=== PATIENT | male | born 1990 | race Caucasian/White ===

== ENCOUNTER 2021-10-24 19:40 | Inpatient (IN) | payer OTHER ==
[2021-10-24] MEDS ORDERED: PIPERACILLIN/TAZOBACTAM 4.5 GM VIAL IVPB ONE (21:25)
[2021-10-24] MEDS ORDERED: VANCOMYCIN 1 GM in D5W (PRE-DOCKED) 1,000 MG/250 ML IVPB ONE (21:26)
[2021-10-24] MEDS ORDERED: GABAPENTIN 300 MG CAPSULE PO ONE (21:28)
[2021-10-24] MEDS ORDERED: GABAPENTIN 300 MG CAPSULE ONE (21:42)
[2021-10-24] MEDS ORDERED: VANCOMYCIN 1 GRAM (PRE-DOCKED) 1,000 MG/250 ML BAG IVPB ONE (21:42)
[2021-10-24] MEDS ORDERED: PIPERACILLIN/TAZOB 4.5 GM 4.5 GM/100 ML BAG IVPB ONE (21:42)
[2021-10-24 22:18] LABS: BASO % 0.7 % (0-2.0); EOS % 0.4 % (0-4.5); HEMATOCRIT 39.3 % (35.4-49); HEMOGLOBIN 13.2 GM/dL (11.7-16.9); LYMPH % 10.8 % (8-40); MCH 29.7 pg (25.7-33.7); MCHC 33.6 g/dl (32.0-35.9); MEAN CELL VOLUME 88.4 fl (80-96); MEAN PLT VOLUME 7.5 fl (7.5-11.1); MONO % 7.4 % (3.8-10.2); NEUT % 80.7 % (42.8-82.8); PLATELET COUNT 309 10^3/uL (134-434); RBC 4.45 M/mm3 (4.00-5.60); RDW 13.6 % (11.9-15.9); WHITE BLOOD COUNT 11.3 K/mm3 (4.0-10.0)
[2021-10-24 22:36] LABS: ALBUMIN 2.9 g/dl (3.4-5.0); BLOOD UREA NITROGEN 13.6 mg/dL (7-18); CALCIUM 8.6 mg/dL (8.5-10.1)
[2021-10-24 22:40] LABS: CREATININE 0.8 mg/dL (0.55-1.3)
[2021-10-24 22:42] LABS: TOT PROT 6.5 g/dl (6.4-8.2)
[2021-10-24] MEDS ORDERED: cloNIDine HCL 0.1 MG TABLET PO PRN (23:33)
[2021-10-24] MEDS: SODIUM CHLORIDE 1,000 ML IV SCH (23:53)
[2021-10-25] MEDS ORDERED: VANCOMYCIN 1,000 MG in DEXTROSE 5%-WATER - 250 ML IVPB SCH (01:30)
[2021-10-25] MEDS ORDERED: VANCOMYCIN/WATER FOR INJ (PEG) 1,000 MG/200 ML BAG IVPB SCH ×2 (04:00→10:00)
[2021-10-25] MEDS ORDERED: PIPERACILLIN/TAZOBACTAM 3.375 GM VIAL IVPB ONE ×3 (04:20→16:14)
[2021-10-25] MEDS ORDERED: DEXTROSE 5%-WATER - 50 ML IVPB ONE ×3 (04:20→16:14)
[2021-10-25] MEDS: SODIUM CHLORIDE 1,000 ML IV SCH (04:23)
[2021-10-25] MEDS: PIPERACILLIN/TAZOB 3.375 GM 3.375 GM in DEXTROSE 5%-WATER - 50 ML IVPB SCH ×4 (04:32→17:32)
[2021-10-25 04:50] VITALS: BMI 23.8
[2021-10-25 07:02] LABS: BASO % 0.4 % (0-2.0); EOS % 0.8 % (0-4.5); HEMOGLOBIN 14.2 GM/dL (11.7-16.9); LYMPH % 18.4 % (8-40); MCHC 33.8 g/dl (32.0-35.9); MEAN CELL VOLUME 88.7 fl (80-96); MEAN PLT VOLUME 7.9 fl (7.5-11.1); NEUT % 71.4 % (42.8-82.8); PLATELET COUNT 303 10^3/uL (134-434); RBC 4.74 M/mm3 (4.00-5.60); RDW 13.8 % (11.9-15.9); WHITE BLOOD COUNT 9.2 K/mm3 (4.0-10.0)
[2021-10-25 07:14] LABS: ALBUMIN 2.8 g/dl (3.4-5.0); BLOOD UREA NITROGEN 9.8 mg/dL (7-18); CALCIUM 8.6 mg/dL (8.5-10.1); MAGNESIUM 2.1 mg/dL (1.8-2.4)
[2021-10-25 07:17] LABS: CREATININE 0.8 mg/dL (0.55-1.3); PHOSPHOROUS 3.3 mg/dL (2.5-4.9)
[2021-10-25 07:19] LABS: BILIRUBIN,TOTAL 1.7 mg/dL (0.2-1); TOT PROT 6.3 g/dl (6.4-8.2)
[2021-10-25] MEDS ORDERED: ENOXAPARIN NA (PORCINE) 40 MG/0.4 ML DISP.SYRIN SQ SCH (10:00)
[2021-10-25] MEDS ORDERED: methaDONE HCL 10 MG TABLET ONE (10:34)
[2021-10-25] MEDS ORDERED: cloNIDine HCL 0.1 MG TABLET PO PRN (13:43)
[2021-10-25] MEDS ORDERED: ESCITALOPRAM OXALATE 10 MG TABLET ONE (14:09)
[2021-10-25] MEDS: GABAPENTIN 400 MG CAPSULE PO SCH ×2 (14:19→21:16)
[2021-10-25] MEDS: ESCITALOPRAM OXALATE 20 MG TABLET PO SCH (14:20)
[2021-10-25] MEDS: VANCOMYCIN 1,000 MG in DEXTROSE 5%-WATER - 250 ML IVPB SCH (16:12)
[2021-10-25] MEDS ORDERED: QUEtiapine FUMARATE 50 MG TABLET PO SCH (22:00)
[2021-10-25] MEDS: VANCOMYCIN/WATER FOR INJ (PEG) 1,000 MG/200 ML BAG IVPB SCH (22:12)
[2021-10-26] MEDS ORDERED: methaDONE HCL 10 MG TABLET ONE (06:38)
[2021-10-26] MEDS: GABAPENTIN 400 MG CAPSULE PO SCH ×3 (06:40→22:04)
[2021-10-26 07:56] LABS: BASO % 0.4 % (0-2.0); EOS % 0.9 % (0-4.5); HEMATOCRIT 42.5 % (35.4-49); HEMOGLOBIN 14.6 GM/dL (11.7-16.9); LYMPH % 16.6 % (8-40); MCH 30.3 pg (25.7-33.7); MCHC 34.3 g/dl (32.0-35.9); MEAN CELL VOLUME 88.4 fl (80-96); MEAN PLT VOLUME 7.8 fl (7.5-11.1); MONO % 7.2 % (3.8-10.2); NEUT % 74.9 % (42.8-82.8); PLATELET COUNT 289 10^3/uL (134-434); RDW 13.9 % (11.9-15.9); WHITE BLOOD COUNT 8.2 K/mm3 (4.0-10.0)
[2021-10-26 08:14] LABS: BLOOD UREA NITROGEN 10.6 mg/dL (7-18); CALCIUM 8.6 mg/dL (8.5-10.1)
[2021-10-26 08:17] LABS: CREATININE 0.8 mg/dL (0.55-1.3)
[2021-10-26] MEDS ORDERED: methaDONE HCL 10 MG TABLET PO ONE (10:00)
[2021-10-26] MEDS ORDERED: ESCITALOPRAM OXALATE 10 MG TABLET ONE (10:07)
[2021-10-26] MEDS: ESCITALOPRAM OXALATE 20 MG TABLET PO SCH (10:09)
[2021-10-26] MEDS ORDERED: ACETAMINOPHEN INJECTION 100 ML IVPB ONE (10:30)
[2021-10-26] MEDS: VANCOMYCIN/WATER FOR INJ (PEG) 1,000 MG/200 ML BAG IVPB SCH ×2 (10:41→23:35)
[2021-10-26] MEDS ORDERED: LIDOCAINE HCL 2% (20ML MULTI-DOSE VIAL) ONE (10:58)
[2021-10-26] MEDS ORDERED: LIDOCAINE HCL 1%, 10 MG/ML (20ML VIAL) ONE (10:58)
[2021-10-26] MEDS ORDERED: ACETAMINOPHEN 1000 MG/100 ML BAG IVPB PRN (12:41)
[2021-10-26] MEDS ORDERED: cloNIDine HCL 0.1 MG TABLET PO PRN (13:54)
[2021-10-26] MEDS: IBUPROFEN 800 MG/8 ML IJ IVPB PRN (14:15)
[2021-10-26] MEDS ORDERED: KETOROLAC TROMETHAMINE 30 MG/1 ML VIAL IVPUSH ONE (19:32)
[2021-10-26] MEDS: QUEtiapine FUMARATE 50 MG TABLET PO SCH (22:04)
[2021-10-27] MEDS ORDERED: methaDONE HCL 10 MG TABLET PO ONE ×2 (06:00)
[2021-10-27] MEDS: GABAPENTIN 400 MG CAPSULE PO SCH ×3 (06:47→20:59)
[2021-10-27 08:56] LABS: BASO % 0.6 % (0-2.0); EOS % 1.7 % (0-4.5); HEMOGLOBIN 14.6 GM/dL (11.7-16.9); LYMPH % 28.7 % (8-40); MCH 29.7 pg (25.7-33.7); MCHC 33.2 g/dl (32.0-35.9); MEAN CELL VOLUME 89.7 fl (80-96); MEAN PLT VOLUME 8.3 fl (7.5-11.1); MONO % 8.7 % (3.8-10.2); NEUT % 60.3 % (42.8-82.8); PLATELET COUNT 288 10^3/uL (134-434); RBC 4.91 M/mm3 (4.00-5.60); RDW 13.8 % (11.9-15.9); WHITE BLOOD COUNT 5.7 K/mm3 (4.0-10.0)
[2021-10-27 09:13] LABS: CALCIUM 8.5 mg/dL (8.5-10.1)
[2021-10-27 09:14] LABS: ALBUMIN 2.9 g/dl (3.4-5.0); BLOOD UREA NITROGEN 18.2 mg/dL (7-18); MAGNESIUM 2.2 mg/dL (1.8-2.4)
[2021-10-27 09:17] LABS: CREATININE 0.8 mg/dL (0.55-1.3)
[2021-10-27 09:19] LABS: BILIRUBIN,TOTAL 0.6 mg/dL (0.2-1); TOT PROT 6.3 g/dl (6.4-8.2)
[2021-10-27] MEDS ORDERED: ESCITALOPRAM OXALATE 10 MG TABLET ONE (09:39)
[2021-10-27] MEDS: VANCOMYCIN/WATER FOR INJ (PEG) 1,000 MG/200 ML BAG IVPB SCH ×2 (10:34→20:59)
[2021-10-27] MEDS: ESCITALOPRAM OXALATE 20 MG TABLET PO SCH (10:35)
[2021-10-27] MEDS: IBUPROFEN 800 MG/8 ML IJ IVPB PRN ×2 (13:34→19:56)
[2021-10-27] MEDS ORDERED: morphine CARPU-JECT 2 MG/1 ML DISP.SYRIN IVPUSH PRN (17:29)
[2021-10-27] MEDS ORDERED: ACETAMINOPHEN 1000 MG/100 ML BAG IVPB PRN ×2 (17:31→22:00)
[2021-10-27] MEDS ORDERED: ACETAMINOPHEN 1000 MG/100 ML BAG IVPB ONE (18:00)
[2021-10-27] MEDS: lamoTRIgine 25 MG TABLET PO SCH (18:10)
[2021-10-27] MEDS: QUEtiapine FUMARATE 50 MG TABLET PO SCH (20:59)
[2021-10-28] MEDS ORDERED: methaDONE HCL 10 MG TABLET ONE (06:38)
[2021-10-28] MEDS: GABAPENTIN 400 MG CAPSULE PO SCH ×3 (06:40→21:02)
[2021-10-28] MEDS ORDERED: ESCITALOPRAM OXALATE 10 MG TABLET ONE (09:42)
[2021-10-28] MEDS: ESCITALOPRAM OXALATE 20 MG TABLET PO SCH (09:53)
[2021-10-28] MEDS: lamoTRIgine 25 MG TABLET PO SCH (09:53)
[2021-10-28] MEDS: VANCOMYCIN/WATER FOR INJ (PEG) 1,000 MG/200 ML BAG IVPB SCH (09:53)
[2021-10-28] MEDS: IBUPROFEN 800 MG/8 ML IJ IVPB PRN (16:53)
[2021-10-28] MEDS: QUEtiapine FUMARATE 50 MG TABLET PO SCH (21:02)
[2021-10-28] MEDS: CLINDAMYCIN HCL 150 MG CAPSULE (FP) PO SCH (21:22)
[2021-10-29] MEDS ORDERED: methaDONE HCL 10 MG TABLET PO ONE ×2 (06:00)
[2021-10-29] MEDS: GABAPENTIN 400 MG CAPSULE PO SCH ×3 (07:00→21:06)
[2021-10-29] MEDS: CLINDAMYCIN HCL 150 MG CAPSULE (FP) PO SCH ×3 (07:00→21:06)
[2021-10-29 09:22] LABS: BASO % 0.8 % (0-2.0); EOS % 2.8 % (0-4.5); HEMATOCRIT 42.9 % (35.4-49); HEMOGLOBIN 14.3 GM/dL (11.7-16.9); LYMPH % 40.5 % (8-40); MCH 29.8 pg (25.7-33.7); MCHC 33.3 g/dl (32.0-35.9); MEAN CELL VOLUME 89.5 fl (80-96); MONO % 8.9 % (3.8-10.2); PLATELET COUNT 288 10^3/uL (134-434); RDW 13.8 % (11.9-15.9); WHITE BLOOD COUNT 4.3 K/mm3 (4.0-10.0)
[2021-10-29] MEDS ORDERED: ESCITALOPRAM OXALATE 10 MG TABLET ONE (09:39)
[2021-10-29 09:48] LABS: CALCIUM 8.4 mg/dL (8.5-10.1)
[2021-10-29 09:49] LABS: BLOOD UREA NITROGEN 19.2 mg/dL (7-18)
[2021-10-29 09:52] LABS: CREATININE 0.9 mg/dL (0.55-1.3)
[2021-10-29] MEDS: lamoTRIgine 25 MG TABLET PO SCH (10:34)
[2021-10-29] MEDS: ESCITALOPRAM OXALATE 20 MG TABLET PO SCH (10:35)
[2021-10-29] MEDS ORDERED: IBUPROFEN 800 MG/8 ML IJ IVPB PRN (14:15)
[2021-10-29] MEDS: oxyCODONE HCL 5 MG TABLET PO PRN (21:06)
[2021-10-29] MEDS: FLUTICASONE PROP 0.05% 16 GM NASAL SPRAY NS SCH (21:07)
[2021-10-29] MEDS: QUEtiapine FUMARATE 50 MG TABLET PO SCH (21:07)
[2021-10-30] MEDS: CLINDAMYCIN HCL 150 MG CAPSULE (FP) PO SCH ×3 (05:40→22:03)
[2021-10-30] MEDS: GABAPENTIN 400 MG CAPSULE PO SCH ×3 (05:40→22:03)
[2021-10-30] MEDS ORDERED: IBUPROFEN 400 MG TABLET (FP) PO PRN (09:16)
[2021-10-30] MEDS ORDERED: ESCITALOPRAM OXALATE 10 MG TABLET ONE (09:48)
[2021-10-30] MEDS: oxyCODONE HCL 5 MG TABLET PO PRN ×3 (09:54→22:03)
[2021-10-30] MEDS: lamoTRIgine 25 MG TABLET PO SCH (09:54)
[2021-10-30] MEDS: FLUTICASONE PROP 0.05% 16 GM NASAL SPRAY NS SCH ×2 (09:56→22:03)
[2021-10-30] MEDS: ESCITALOPRAM OXALATE 10 MG TABLET PO SCH (09:57)
[2021-10-30] MEDS: ACETAMINOPHEN 325 MG TABLET (FP) PO PRN (17:11)
[2021-10-30] MEDS: QUEtiapine FUMARATE 50 MG TABLET PO SCH (22:03)
[2021-10-31] MEDS: oxyCODONE HCL 5 MG TABLET PO PRN ×3 (05:37→22:01)
[2021-10-31] MEDS: CLINDAMYCIN HCL 150 MG CAPSULE (FP) PO SCH ×3 (05:38→21:26)
[2021-10-31] MEDS: GABAPENTIN 400 MG CAPSULE PO SCH ×3 (05:38→21:26)
[2021-10-31] MEDS: lamoTRIgine 25 MG TABLET PO SCH ×2 (11:21→11:25)
[2021-10-31] MEDS: ESCITALOPRAM OXALATE 10 MG TABLET PO SCH (11:21)
[2021-10-31] MEDS: FLUTICASONE PROP 0.05% 16 GM NASAL SPRAY NS SCH ×2 (11:22→21:28)
[2021-10-31] MEDS ORDERED: hydrOXYzine PAMOATE 25 MG CAPSULE (FP) PO ONE (18:29)
[2021-10-31] MEDS: QUEtiapine FUMARATE 50 MG TABLET PO SCH (21:26)
[2021-11-01] MEDS: GABAPENTIN 400 MG CAPSULE PO SCH ×3 (06:21→22:01)
[2021-11-01] MEDS: CLINDAMYCIN HCL 150 MG CAPSULE (FP) PO SCH ×3 (06:21→22:01)
[2021-11-01] MEDS: lamoTRIgine 25 MG TABLET PO SCH (10:46)
[2021-11-01] MEDS: ESCITALOPRAM OXALATE 10 MG TABLET PO SCH (10:47)
[2021-11-01] MEDS: oxyCODONE HCL 5 MG TABLET PO PRN (10:48)
[2021-11-01] MEDS: ACETAMINOPHEN 325 MG TABLET (FP) PO PRN ×2 (10:50→18:43)
[2021-11-01] MEDS: FLUTICASONE PROP 0.05% 16 GM NASAL SPRAY NS SCH ×2 (10:52→22:03)
[2021-11-01] MEDS: hydrOXYzine PAMOATE 25 MG CAPSULE (FP) PO PRN ×2 (16:11→22:02)
[2021-11-01] MEDS: QUEtiapine FUMARATE 50 MG TABLET PO SCH (22:02)
[2021-11-02] MEDS ORDERED: KETOROLAC TROMETHAMINE 15 MG/ML VIAL IVPUSH ONE (00:56)
[2021-11-02] MEDS: CLINDAMYCIN HCL 150 MG CAPSULE (FP) PO SCH (06:50)
[2021-11-02] MEDS: GABAPENTIN 400 MG CAPSULE PO SCH (06:50)
[2021-11-02] MEDS: ESCITALOPRAM OXALATE 10 MG TABLET PO SCH (09:50)
[2021-11-02] MEDS: lamoTRIgine 25 MG TABLET PO SCH (09:50)
[2021-11-02] MEDS: FLUTICASONE PROP 0.05% 16 GM NASAL SPRAY NS SCH (09:50)
[2021-11-02] MEDS: ACETAMINOPHEN 325 MG TABLET (FP) PO PRN (11:20)
[2021-11-02 11:30] VITALS: BP 114/63; PULSE 66; TEMP 97.8
== END 2021-11-02 15:12 | disposition other institution (70) | DRG 383 ==
LOC: JER 19:40 → JERBED 22:50 → J6S 10-25 04:15
PROVIDERS: ADMIT Internal Medicine
PROC: 0X9D0ZZ Drainage of Right Lower Arm, Open Approach (ICD-10-PCS; principal; 2021-10-26 11:30)
DX: L02.413 Cutaneous abscess of right upper limb (principal); U07.1 COVID-19; L03.113 Cellulitis of right upper limb; F11.23 Opioid dependence with withdrawal; F17.210 Nicotine dependence, cigarettes, uncomplicated; F41.8 Other specified anxiety disorders; M79.89 Other specified soft tissue disorders; F12.10 Cannabis abuse, uncomplicated; F10.10 Alcohol abuse, uncomplicated; F14.10 Cocaine abuse, uncomplicated; F39 Unspecified mood [affective] disorder
CPT/HCPCS: 36415; 73090-TC-RT-FY; 73201-TC-RT; 80048; 80053; 83036; 83735; 84100; 85025; 87040; 87070; 87205; 93005; 93010; 99285-25; C9803-CS; G0480; J0735; U0003; U0005